=== PATIENT | male | born 1980 | race Caucasian/White ===

== ENCOUNTER 2020-06-13 17:08 | Inpatient (IN) | payer OTHER ==
[2020-06-13] MEDS ORDERED: MORPHINE SULFATE 4 MG/ML SYRINGE IVP STA (17:34)
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
[2020-06-13 17:56] LABS: Basophils # (A) 0.1 k/uL (0-0.2); Basophils % (A) 1 %; Eosinophils # (A) 0.2 k/uL (0-0.7); Eosinophils % (A) 2 %; HGB 13.8 gm/dL (13.0-17.5); Lymphocytes # (A) 2.3 k/uL (1.0-4.8); Lymphocytes % (A) 26 %; MCH 30.8 pg (25.0-35.0); MCHC 32.8 g/dL (31.0-37.0); MCV 93.9 fL (80.0-100.0); Mean Platelet Volume 7.5; Monocytes # (A) 0.5 k/uL (0-1.0); Monocytes % (A) 5 %; Neutrophils # (A) 5.9 k/uL (1.3-7.7); Neutrophils % (A) 65 %; Platelet Count 287 k/uL (150-450); RBC 4.47 m/uL (4.30-5.90); RDW 12.6 % (11.5-15.5)
[2020-06-13 18:04] LABS: ALT 31 U/L (4-49); AST 31 U/L (17-59); African American GFR (CKD) >90 (>60 ml/min/1.73 sqM); Albumin 4.6 g/dL (3.5-5.0); Alcohol <10 mg/dL; Alkaline Phosphatase 82 U/L (38-126); Anion Gap 8 mmol/L; Blood Urea Nitrogen 17 mg/dL (9-20); Calcium 9.7 mg/dL (8.4-10.2); Carbon Dioxide 31 mmol/L (22-30); Chloride 103 mmol/L (98-107); Glucose 142 mg/dL (74-99); Non-African American GFR(CKD) >90 (>60 ml/min/1.73 sqM); Potassium 4.1 mmol/L (3.5-5.1); Sodium 142 mmol/L (137-145); Total Bilirubin 0.6 mg/dL (0.2-1.3); Total Protein 7.5 g/dL (6.3-8.2)
[2020-06-13 18:13] LABS: INR 0.9 (<1.2); Partial Thromboplastin Time 21.6 sec (22.0-30.0); Prothrombin Time 10.1 sec (9.0-12.0)
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
--- NOTE | 2020-06-13 18:25 | XR ---
EXAMINATION TYPE: XR pelvis AP view DATE OF EXAM: 06/13/2020 COMPARISON: NONE HISTORY: Pain TECHNIQUE: FINDINGS: Pelvic ring is intact. Proximal femurs and hip joints are intact. Sacroiliac joints are int act. IMPRESSION: Normal pelvis.
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
[2020-06-13] MEDS ORDERED: KETAMINE 10 MG/ML 20 ML VIAL IV ONE (18:51)
[2020-06-13] MEDS ORDERED: LIDOCAINE 1%-EPI 1:100,000 20 ML VIAL SQ STA (18:55)
--- NOTE | 2020-06-13 19:15 | XR ---
EXAMINATION TYPE: XR elbow complete LT DATE OF EXAM: 06/13/2020 COMPARISON: NONE HISTORY: Pain TECHNIQUE: 3 views FINDINGS: I see no fracture nor dislocation. Joint spaces appear normal. There is no sign of elbow anthony int effusion. IMPRESSION: Negative left elbow exam.
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
--- NOTE | 2020-06-13 20:13 | XR ---
EXAMINATION TYPE: XR chest 1V portable DATE OF EXAM: 06/13/2020 COMPARISON: Today HISTORY: Chest pain. Chest tube. TECHNIQUE: Single view FINDINGS: There is left-sided chest tube. There is clearing of the left side pneumothorax. Trachea is midline. There is some interstitial infiltrate in the left lung. IMPRESSION: There is clearing of the left side pneumothorax. Left-sided rib fractures are noted. Ther e is increased interstitial infiltrate in the left lower lobe compared to initial exam.
[2020-06-13] MEDS ORDERED: ACETAMINOPHEN TAB 325 MG TAB PO PRN (20:15)
[2020-06-13] MEDS ORDERED: NALOXONE 0.4 MG/ML 1 ML VIAL IV PRN (20:15)
[2020-06-13] MEDS: SODIUM CHLORIDE 0.9% 1,000 ML IV SCH (20:20)
[2020-06-14] MEDS: MORPHINE SULFATE 4 MG/ML SYRINGE IV PRN ×6 (00:27→22:25)
[2020-06-14] MEDS: KETOROLAC 15 MG/ML 1 ML VIAL IVP SCH ×3 (09:12→18:54)
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
[2020-06-14] MEDS: PANTOPRAZOLE 40 MG TABLET PO SCH (16:32)
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
[2020-06-14] MEDS: SODIUM CHLORIDE 0.9% 1,000 ML IV SCH (18:53)
[2020-06-15] MEDS: KETOROLAC 15 MG/ML 1 ML VIAL IVP SCH ×5 (00:18→23:15)
[2020-06-15] MEDS: SODIUM CHLORIDE 0.9% 1,000 ML IV SCH ×2 (00:19→15:17)
[2020-06-15] MEDS: MORPHINE SULFATE 4 MG/ML SYRINGE IV PRN ×5 (02:34→19:45)
[2020-06-15] MEDS: PANTOPRAZOLE 40 MG TABLET PO SCH (06:39)
--- NOTE | 2020-06-15 08:19 | XR ---
EXAMINATION TYPE: XR chest 1V portable DATE OF EXAM: 06/15/2020 COMPARISON: 06/13/2020 INDICATION: Pneumothorax TECHNIQUE: Single frontal view of the chest is obtained. FINDINGS: The heart size is normal. The pulmonary vasculature is normal. The lungs are clear. No pneumothorax is evident. Catheter is present on the left. Left-sided rib fractures again evident. IMPRESSION: 1. No pneumothorax. Left-sided chest tube catheter remains in position.
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
--- NOTE | 2020-06-15 12:34 | XR ---
EXAMINATION TYPE: XR chest 1V portable DATE OF EXAM: 06/15/2020 COMPARISON: 06/15/2020 INDICATION: Left-sided pneumothorax TECHNIQUE: Single frontal view of the chest is obtained. FINDINGS: The heart size is normal. The pulmonary vasculature is normal. There is a small left apical pneumothorax. Left-sided chest tube remains in position. Adjacent left u pper rib fractures are evident. IMPRESSION: 1. Very minimal left apical pneumothorax. 2. Left upper posterior rib fractures
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
[2020-06-15] MEDS: HEPARIN SODIUM,PORCINE/PF 5,000 UNIT/0.5 ML SYRINGE SQ SCH (19:45)
[2020-06-16 00:16] VITALS: RESP 16
[2020-06-16] MEDS: SODIUM CHLORIDE 0.9% 1,000 ML IV SCH (02:21)
[2020-06-16] MEDS: MORPHINE SULFATE 4 MG/ML SYRINGE IV PRN ×2 (02:22→08:56)
[2020-06-16] MEDS: KETOROLAC 15 MG/ML 1 ML VIAL IVP SCH ×2 (05:56→13:09)
[2020-06-16] MEDS: PANTOPRAZOLE 40 MG TABLET PO SCH (05:56)
--- NOTE | 2020-06-16 07:44 | XR ---
EXAMINATION TYPE: XR chest 2V DATE OF EXAM: 06/16/2020 COMPARISON: 06/15/2020 HISTORY: Chest pain TECHNIQUE: Frontal and lateral views of the chest are obtained. FINDINGS: There is no focal air space opacity. Previously noted tiny left apical pneumothorax is barely visible with sliver component seen within th e left lung apex. Left-sided chest catheter has been removed. Increasing left perihilar opacity may r eflect underlying atelectasis or infiltrate. The cardiac silhouette size is within normal limits. The osseous structures are grossly intact. IMPRESSION: 1. Previously noted tiny left apical pneumothorax is barely visible with sliver component seen withi n the left lung apex. Left-sided chest catheter has been removed. Increasing left perihilar opacity m ay reflect underlying atelectasis or infiltrate.
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
[2020-06-16] MEDS: HEPARIN SODIUM,PORCINE/PF 5,000 UNIT/0.5 ML SYRINGE SQ SCH (08:56)
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
[2020-06-16 15:12] VITALS: TEMP 98
[2020-06-16 15:14] VITALS: BP 147/86; PULSE 65
== END 2020-06-16 16:22 | disposition home or self-care (01) | DRG 200 ==
LOC: EC 17:08 → 3SCARD 20:17 → 3NCARDOBS 06-14 14:17 → 3SCARD 06-14 14:18
PROVIDERS: ADMIT Surgery Plastic and Reconstructive Surgery; ATTEND Surgery Plastic and Reconstructive Surgery
DX: S27.0XXA Traumatic pneumothorax, initial encounter (principal); S22.42XA Multiple fractures of ribs, left side, initial encounter for closed fracture; J98.11 Atelectasis; S27.321A Contusion of lung, unilateral, initial encounter; S20.312A Abrasion of left front wall of thorax, initial encounter; S42.102A Fracture of unspecified part of scapula, left shoulder, initial encounter for closed fracture; S42.002A Fracture of unspecified part of left clavicle, initial encounter for closed fracture; I45.10 Unspecified right bundle-branch block; S42.022A Displaced fracture of shaft of left clavicle, initial encounter for closed fracture; Y93.55 Activity, bike riding; V86.56XA Driver of dirt bike or motor/cross bike injured in nontraffic accident, initial encounter
CPT/HCPCS: 71045; 71046; 71260; 72170; 74177; 80053; 80320; 84484; 85025; 85610; 85730; 86850; 86900; 86901; 87636; 93005; 96374; 96375; 99285

== ENCOUNTER 2022-07-09 08:52 | Emergency (ER) | payer OTHER ==
[2022-07-09 09:00] VITALS: RESP 18; TEMP 98.2
[2022-07-09] MEDS ORDERED: LIDOCAINE 1% INJ 10MG/ML (30 ML VIAL-PF) SQ ONE (09:14)
[2022-07-09] MEDS ORDERED: DIPH,PERTUS(ACELL)TETVAC-LF 0.5 ML VIAL IM ONE (09:43)
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
[2022-07-09] MEDS ORDERED: BACITRACIN OINT 1 EACH PACKET TOPICAL ONE (10:32)
[2022-07-09 10:55] VITALS: BP 136/78; PULSE 79
== END 2022-07-09 10:48 | disposition home or self-care (01) ==
LOC: EC 08:52
DX: S81.012A Laceration without foreign body, left knee, initial encounter (principal); Z88.5 Allergy status to narcotic agent; Z23 Encounter for immunization; V28.01XA Electric (assisted) bicycle driver injured in noncollision transport accident in nontraffic accident, initial encounter
CPT/HCPCS: 90715; 99282; 90471; 12001; J2001